=== PATIENT | female | born 1950 | race Caucasian/White ===

== ENCOUNTER 2018-09-13 12:26 | Outpatient (REF) | payer MEDICARE, MEDICAID, SELFPAY ==
[2018-09-13 13:18] LABS: Anion Gap 12.5 mmol/L (3-11); BUN 17 mg/dL (7-18); CO2 24.5 mmol/L (21.0-32.0); CREATININE 0.62 mg/dL (0.55-1.02); Calcium 8.6 mg/dL (8.5-10.1); Chloride 105 mmol/L (98-107); Glucose 126 mg/dL (70-100); Potassium 4.1 mmol/L (3.5-5.1); Sodium 142 mmol/L (136-145)
== END 2018-09-13 12:46 ==
LOC: LBN 12:26
PROVIDERS: PCP Student in an Organized Health Care Education/Training Program; Visit Provider Family Medicine
DX: E11.9 Type 2 diabetes mellitus without complications (principal); E78.5 Hyperlipidemia, unspecified
CPT/HCPCS: 80048; 83036

== ENCOUNTER 2018-09-23 16:39 | Outpatient (REF) | payer MEDICARE, MEDICAID, SELFPAY ==
[2018-09-23 22:16] LABS: Hemoglobin A1C 6.1 % (4.5-6.2)
== END 2018-09-23 16:59 ==
LOC: LBN 16:39
PROVIDERS: PCP Student in an Organized Health Care Education/Training Program; Visit Provider Family Medicine
DX: E11.9 Type 2 diabetes mellitus without complications (principal)
CPT/HCPCS: 83036

== ENCOUNTER 2019-03-18 11:36 | Outpatient (CLI) | payer MEDICARE, MEDICAID, SELFPAY ==
[2019-03-18 12:20] LABS: Anion Gap 14.4 mmol/L (3-11); BUN 14 mg/dL (7-18); CO2 24.6 mmol/L (21.0-32.0); CREATININE 0.81 mg/dL (0.55-1.02); Calcium 8.7 mg/dL (8.5-10.1); Chloride 101 mmol/L (98-107); Glucose 242 mg/dL (70-100); Potassium 3.9 mmol/L (3.5-5.1); Sodium 140 mmol/L (136-145)
[2019-03-18 13:01] LABS: Hemoglobin A1C 6.8 % (4.5-6.2)
== END 2019-03-18 11:56 ==
PROVIDERS: PCP Student in an Organized Health Care Education/Training Program; Visit Provider Nurse Practitioner Adult Health
DX: E11.9 Type 2 diabetes mellitus without complications (principal)
CPT/HCPCS: 36415; 80048; 83036

== ENCOUNTER 2019-08-13 08:54 | Outpatient (REF) | payer MEDICARE, MEDICAID, SELFPAY ==
[2019-08-13 10:47] LABS: Bilirubin Negative (Negative); Blood Trace-intact (Negative); Clarity Cloudy (Clear); Glucose 250 mg/dL (Negative); Ketones Trace mg/dL (Negative); Leukocyte Esterase Small (Negative); Nitrite Positive (Negative); Specific Gravity 1.025 (1.005-1.025)
[2019-08-13 10:57] LABS: Bacteria Packed HPF (Negative); C & S Indicated? Yes; WBC >50 HPF (0-5)
== END 2019-08-13 09:14 ==
LOC: LBN 08:54
PROVIDERS: PCP Student in an Organized Health Care Education/Training Program; Visit Provider Nurse Practitioner Adult Health
DX: R30.0 Dysuria (principal)
CPT/HCPCS: 87077; 81003; 81015; 87086; 87186

== ENCOUNTER 2019-09-16 10:23 | Outpatient (CLI) | payer MEDICARE, MEDICAID, SELFPAY ==
[2019-09-16 11:23] LABS: Anion Gap 12.4 mmol/L (3-11); BUN 19 mg/dL (7-18); CO2 22.6 mmol/L (21.0-32.0); CREATININE 0.59 mg/dL (0.55-1.02); Calcium 8.4 mg/dL (8.5-10.1); Chloride 105 mmol/L (98-107); Glucose 288 mg/dL (74-106); Potassium 3.9 mmol/L (3.5-5.1); Sodium 140 mmol/L (136-145)
[2019-09-16 12:08] LABS: Hemoglobin A1C 10.4 % (4.5-6.2)
== END 2019-09-16 10:43 ==
PROVIDERS: PCP Student in an Organized Health Care Education/Training Program; Visit Provider Nurse Practitioner Adult Health
DX: E11.9 Type 2 diabetes mellitus without complications (principal)
CPT/HCPCS: 36415; 80048; 83036

== ENCOUNTER 2019-10-21 10:22 | Outpatient (CLI) | payer MEDICARE, MEDICAID, SELFPAY ==
[2019-10-21 10:47] LABS: Abs Immature Grans 0.03 k/cumm (0.0-0.09); Absolute Basophil Count 0.04 k/cumm (0.0-0.2); Absolute Lymphocyte Count 2.78 k/cumm (1.2-3.4); Basophils % 0.3; Eosinophils % 0.3; HCT 42.5 % (36.0-46.0); HGB 13.7 g/dL (12.0-15.5); Immature Grans % 0.3 %; Lymphocytes % 23.3; Mean Corp. HGB Concentration 32.2 g/dL (32.0-36.0); Mean Corpuscular Hemoglobin 27.3 pg (27.0-33.0); Mean Corpuscular Volume 84.7 fL (80-95); Mean Platelet Volume 8.8 fL (8.0-11.0); Neutrophils % 68.8; Platelet Count 450 x1000/uL (130-400); RBC 5.02 m/cumm (4.00-5.20); White Blood Cell Count 11.92 k/cumm (4.4-10.8)
[2019-10-21 10:48] LABS: Absolute Eosinophil Count 0.04 k/cumm (0.0-0.7); Absolute Monocyte Count 0.83 k/cumm (0.11-0.7)
[2019-10-21 10:49] LABS: Anion Gap 12.8 mmol/L (3-11); BUN 24 mg/dL (7-18); CO2 24.2 mmol/L (21.0-32.0); CREATININE 0.86 mg/dL (0.55-1.02); Calcium 8.9 mg/dL (8.5-10.1); Chloride 104 mmol/L (98-107); Glucose 231 mg/dL (74-106); Potassium 3.9 mmol/L (3.5-5.1); Sodium 141 mmol/L (136-145)
== END 2019-10-21 10:42 ==
PROVIDERS: PCP Student in an Organized Health Care Education/Training Program; Visit Provider Nurse Practitioner Adult Health
DX: D50.9 Iron deficiency anemia, unspecified (principal); N39.0 Urinary tract infection, site not specified
CPT/HCPCS: 36415; 80048; 85025

== ENCOUNTER 2019-12-16 11:24 | Outpatient (CLI) | payer MEDICARE, MEDICAID, SELFPAY | END 2019-12-16 11:44 | PROVIDERS: PCP Student in an Organized Health Care Education/Training Program; Visit Provider Nurse Practitioner Adult Health | DX: E11.9 Type 2 diabetes mellitus without complications (principal) | CPT/HCPCS: 36415; 83036 ==

== ENCOUNTER 2021-04-03 19:54 | Outpatient (REF) | payer SELFPAY | END 2021-04-03 19:55 | disposition home or self-care (01) | LOC: LBN 19:54 | PROVIDERS: PCP Student in an Organized Health Care Education/Training Program; Visit Provider Family Medicine | DX: L89.154 Pressure ulcer of sacral region, stage 4 (principal); L03.312 Cellulitis of back [any part except buttock and flank] | CPT/HCPCS: 87077; 87070; 87186; 87205 ==

== ENCOUNTER 2021-10-05 13:43 | Outpatient (REF) | payer MEDICARE, MEDICAID, SELFPAY ==
[2021-10-05 14:21] LABS: Anion Gap 8.6 mmol/L (3-11); BUN 39 mg/dL (7-18); CO2 26.4 mmol/L (21.0-32.0); CREATININE 0.4 mg/dL (0.55-1.02); Calcium 8.8 mg/dL (8.5-10.1); Chloride 106 mmol/L (98-107); Glucose 125 mg/dL (74-106); Potassium 4.1 mmol/L (3.5-5.1); Sodium 141 mmol/L (136-145)
[2021-10-05 14:41] LABS: HCT 40.9 % (36.0-46.0); HGB 12.6 g/dL (11.2-15.7); MCH 26.1 pg (27.0-33.0); MCHC 30.8 % (32.0-36.0); MCV 84.7 fL (80-95); MPV 9.6 fL (8.0-11.0); Platelet Count 314 10^3/uL (130-400); RBC 4.83 10^6/uL (3.93-5.22); RDW 14.4 % (11.7-14.6); WBC 8.91 10^3/uL (4.4-10.8)
[2021-10-08 18:15] LABS: Lamotrigine 2.7 mcg/mL (2.5 - 15.0)
== END 2021-10-05 13:44 | disposition home or self-care (01) ==
LOC: LBN 13:43
PROVIDERS: Visit Provider Nurse Practitioner Family
DX: Z51.81 Encounter for therapeutic drug level monitoring (principal)
CPT/HCPCS: 80048; 80175; 85027

== ENCOUNTER 2021-11-14 14:14 | Outpatient (REF) | payer MEDICARE, MEDICAID, SELFPAY ==
[2021-11-14 15:40] LABS: Abs Immature Grans 0.01 10^3/uL (0.0-0.06); Absolute Basophil Count 0.03 10^3/uL (0.0-0.2); Absolute Eosinophil Count 0.07 10^3/uL (0.0-0.7); Absolute Lymphocyte Count 2.74 10^3/uL (1.2-3.4); Absolute Monocyte Count 0.39 10^3/uL (0.1-0.8); Absolute Neutrophil Count 3.64 10^3/uL (1.2-6.7); Basophils % 0.4; HGB 13.1 g/dL (11.2-15.7); Immature Grans % 0.1; Lymphocytes % 39.8; MCV 84.5 fL (80-95); MPV 9.7 fL (8.0-11.0); Monocytes % 5.7; Nucleated RBC 0 %; Platelet Count 259 10^3/uL (130-400); RBC 4.85 10^6/uL (3.93-5.22); RDW 13.5 % (11.7-14.6); RDW-SD 41.7 fL; WBC 6.88 10^3/uL (4.4-10.8)
[2021-11-14 16:25] LABS: ALT 28 U/L (14-59); AST 17 U/L (15-37); Albumin 2.8 g/dL (3.4-5.0); Alkaline Phosphatase 104 U/L (46-116); Anion Gap 8.8 mmol/L (3-11); BUN 20 mg/dL (7-18); Bilirubin, Total 0.3 mg/dL (0.2-1.0); CO2 27.2 mmol/L (21.0-32.0); CREATININE 0.5 mg/dL (0.55-1.02); Calcium 8.8 mg/dL (8.5-10.1); Chloride 107 mmol/L (98-107); Glucose 151 mg/dL (74-106); Sodium 143 mmol/L (136-145); Total Protein 6.7 g/dL (6.4-8.2)
[2021-11-15 12:58] LABS: Lamotrigine 2.9 mcg/mL (2.5 - 15.0)
== END 2021-11-14 14:15 | disposition home or self-care (01) ==
LOC: LBN 14:14
PROVIDERS: Visit Provider Nurse Practitioner Family
DX: E11.9 Type 2 diabetes mellitus without complications (principal); G40.89 Other seizures
CPT/HCPCS: 80053; 80175; 85025

== ENCOUNTER 2021-12-19 01:52 | Outpatient (REF) | payer MEDICARE, MEDICAID, SELFPAY ==
[2021-12-19 04:18] LABS: Abs Immature Grans 0.02 10^3/uL (0.0-0.06); Absolute Basophil Count 0.04 10^3/uL (0.0-0.2); Absolute Eosinophil Count 0.06 10^3/uL (0.0-0.7); Absolute Lymphocyte Count 4.43 10^3/uL (1.2-3.4); Absolute Monocyte Count 0.61 10^3/uL (0.1-0.8); Absolute Neutrophil Count 3.58 10^3/uL (1.2-6.7); Basophils % 0.5; Eosinophils % 0.7; HCT 37.5 % (36.0-46.0); Immature Grans % 0.2; Lymphocytes % 50.7; MCH 27.7 pg (27.0-33.0); MCV 86.6 fL (80-95); MPV 9.5 fL (8.0-11.0); Neutrophils % 40.9; Nucleated RBC 0 %; Platelet Count 260 10^3/uL (130-400); RBC 4.33 10^6/uL (3.93-5.22); RDW 13.5 % (11.7-14.6); RDW-SD 42.5 fL; WBC 8.74 10^3/uL (4.4-10.8)
[2021-12-19 19:28] LABS: ALT 23 U/L (14-59); AST 14 U/L (15-37); Albumin 2.8 g/dL (3.4-5.0); Alkaline Phosphatase 84 U/L (46-116); Anion Gap 9.4 mmol/L (3-11); BUN 32 mg/dL (7-18); Bilirubin, Total 0.3 mg/dL (0.2-1.0); CO2 25.6 mmol/L (21.0-32.0); CREATININE 0.4 mg/dL (0.55-1.02); Calcium 8.3 mg/dL (8.5-10.1); Chloride 108 mmol/L (98-107); Glucose 158 mg/dL (74-106); Potassium 3.9 mmol/L (3.5-5.1); Sodium 143 mmol/L (136-145); Total Protein 6.5 g/dL (6.4-8.2)
[2021-12-20 16:44] LABS: Lamotrigine 3.1 mcg/mL (2.5 - 15.0)
== END 2021-12-19 01:53 | disposition home or self-care (01) ==
LOC: LBN 01:52
PROVIDERS: Visit Provider Family Medicine
DX: E11.9 Type 2 diabetes mellitus without complications (principal); G81.14 Spastic hemiplegia affecting left nondominant side; R13.11 Dysphagia, oral phase
CPT/HCPCS: 80048; 80053; 80175; 85025

== ENCOUNTER → 2022-01-13 09:06 | Outpatient (BNVA) | payer MEDICARE, MEDICAID, SELFPAY | PROVIDERS: Visit Provider Surgery | DX: R69 Illness, unspecified (principal) ==

== ENCOUNTER → 2022-01-24 10:22 | Outpatient (BNVA) | payer MEDICARE, MEDICAID, SELFPAY | PROVIDERS: Visit Provider Surgery | DX: L89.154 Pressure ulcer of sacral region, stage 4 (principal); I69.398 Other sequelae of cerebral infarction; G40.909 Epilepsy, unspecified, not intractable, without status epilepticus; F03.90 Unspecified dementia, unspecified severity, without behavioral disturbance, psychotic disturbance, mood disturbance, and anxiety | CPT/HCPCS: 99203 ==

== ENCOUNTER 2022-02-19 11:35 | Outpatient (REF) | payer MEDICARE, MEDICAID, SELFPAY ==
[2022-02-21 13:27] LABS: COVID-19 RT-PCR UVMMC Result Negative (Negative)
== END 2022-02-19 11:36 | disposition home or self-care (01) ==
LOC: LBN 11:35
PROVIDERS: Visit Provider Family Medicine
DX: Z20.822 Contact with and (suspected) exposure to COVID-19 (principal)
CPT/HCPCS: U0003; U0005

== ENCOUNTER 2022-02-21 09:25 | Outpatient (REF) | payer MEDICARE, MEDICAID, SELFPAY ==
[2022-02-21 12:44] LABS: Source Nasal/Nares
[2022-02-21 17:50] LABS: COVID-19 PCR Negative (Negative)
== END 2022-02-21 09:26 | disposition home or self-care (01) ==
LOC: LBN 09:25
PROVIDERS: Visit Provider Surgery
DX: Z20.822 Contact with and (suspected) exposure to COVID-19 (principal); Z01.818 Encounter for other preprocedural examination
CPT/HCPCS: 87635; U0005

== ENCOUNTER 2022-02-22 06:18 | Day surgery (SDC) | payer MEDICARE, MEDICAID, SELFPAY ==
--- NOTE | 2022-02-21 10:03 | ANES.PREOP_ITS ---
General Info Surgical Procedure: Operation Date: 02/22/22 07:40 Proposed Procedure Side Surgeon p Exam,Debridement of Wound,Placement of Wound Vac Sussy Mohan MD Meds Allergies and Home Medications Allergies Allergy/AdvReac Type Severity Reaction Status Date / Time diphenhydramine Allergy Unknown Unverified 06/27/13 11:23 Home Medication Medication Instructions Recorded wheelchair #1 04/18/13 Lactobacillus acidophilus 1 10 mg PO DAILY 01/05/22 billion cell capsule baclofen 10 mg tablet 10 mg PO BID 01/05/22 bisacodyl 10 mg rectal suppository 10 mg AK DAILY PRN 01/05/22 dextrose 40 % oral gel (Glutose-15) 10 g PO Q15M PRN 01/05/22 diazepam 10 mg rectal kit 5 mg AK Q12H PRN 01/05/22 diclofenac sodium 1 % topical gel 2 g TOPICAL QID 01/05/22 (Voltaren Arthritis Pain) gabapentin 100 mg capsule 100 mg PO QHS 01/05/22 glucagon 1 mg solution for 1 mg SUBCUT Q20M PRN 01/05/22 injection (GlucaGen HypoKit) lamotrigine 100 mg tablet 100 mg PO BID 01/05/22 lamotrigine 25 mg tablet 25 mg PO BID tab 01/05/22 magnesium hydroxide 400 mg/5 mL 5 ml PO DAILY PRN 01/05/22 oral suspension (Milk of Magnesia) morphine 20 mg/5 mL (4 mg/mL) oral 10 mg PO Q4H PRN 01/05/22 solution nutritional supplements pwd PO 01/05/22 omeprazole 20 mg capsule,delayed 20 mg PO BID 01/05/22 release polyethylene glycol 3350 17 17 g PO DAILY 01/05/22 gram/dose oral powder sennosides 8.6 mg capsule (senna) 8.6 mg PO DAILY 01/05/22 sodium phosphates 19 gram-7 118 ml AK ONCE 01/05/22 gram/118 mL enema (Fleet Enema) zinc sulfate 50 mg zinc (220 mg) 50 mg PO DAILY 01/05/22 capsule (Orazinc) PFSH Active Problems Active Problems: Problem Status Onset Code DNI (do not intubate) Z78.9 DNR (do not resuscitate) Z66 Pressure ulcer of sacral region, stage 4 L89.154 Visit for wound care Z51.89 Seizure disorder as sequela of cerebrovascular accident 10/15/94 I69.398, 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 04/22/13 I69.90 Hemiparesis, left 11/29/17 G81.94 Localization-related (focal) (partial) symptomatic epilepsy and epileptic syndromes with complex partial seizures, intractable, without status epilepticus 10/15/94 G40.219 Dementia without behavioral disturbance 11/29/17 F03.90 Medical History Medical History (Updated 01/24/22 @ 11:26 by Sussy Mohan MD) Abnormal findings on diagnostic imaging of breast (04/22/13) Adenomatous colon polyp (10/13/09) tubular adenoma WALKO 10/13/09 Anemia Benign neoplasm of colon (10/13/09) tubular adenoma WALKO 10/13/09 Depressive disorder (05/21/12) Dysphagia Encounter for palliative care GERD (gastroesophageal reflux disease) Hyperlipidemia (05/21/12) goal change LDL 130 --> 100 due to DM dx 05/2012 Spastic hemiplegia Type 2 diabetes mellitus with hyperglycemia (05/21/12) new elevated FBS 2010, neg FH, little exercise A1C rise noted, Oct 2017. Metformin increased, re-evaluate January 2018[] Urge incontinence of urine (09/17/12) Dr Leslie Weakness Surgical History Surgical History History of colonoscopy Vital Signs and Lab Results Lab Results Blood Type / Crossmatch: No Data to Display Complete Blood Count: No Data to Display Complete Metabolic Panel: No Data to Display Liver Function Panel: No Data to Display Coagulation Panel: No Data to Display Cardiac Panel: No Data to Display Arterial Blood Gas: No Data to Display Venous Blood Gas: No Data to Display Pancreas Panel: No Data to Display Thyroid Panel: No Data to Display Infectious Disease: Coronavirus (COVID-19)(PCR) Pending 02/19/22 16:00 02/19/22 Blood Cultures: No Data to Display Toxicology Panel: No Data to Display Anesthesia Assessment and Plan Anesthesia History Personal History: No History of Anesthesia Complications Family History: No Family History of Anesthesia Complications Implantable Cardiac Device Does patient have a Pacemaker or an ICD?: No ASA Classification ASA Score: ASA 3 Emergency Case?: No Anesthesia Plan Resuscitation Status: DNR Modified During Perioperative Period Resuscitation Modifications: CPR Refused, Defibrillation Refused and Pt. Requests for Clinical Judgement to be Used Anesthesia Technique: General Anesthesia Airway Planned: Endotracheal Tube Monitors Used: Standard Monitors Preoperative Comments:: Patient's sister, Junie Us (DPOA) has consented for the patient to be intubated for the procedure, but does not want heroic life- sustaining measures taken.
[2022-02-22] VITALS (7 sets, daily range): BP systolic 116–167; BP diastolic 57–86; PULSE 50–56; RESP 10–16; TEMP 35.9–36.4; O2SAT 96–100; BMI 18.3
--- NOTE | 2022-02-22 06:09 | ANES.PREOP_ITS ---
General Info Date of Service Date Performed: 02/22/22 Height: 5 ft 8 in Weight: 54.794 kg Body Mass Index (BMI): 18.3 Surgical Procedure: Operation Date: 02/22/22 07:40 Proposed Procedure Side Surgeon p Exam,Debridement of Wound,Placement of Wound Vac Sussy Mohan MD Meds Allergies and Home Medications Allergies Allergy/AdvReac Type Severity Reaction Status Date / Time diphenhydramine Allergy Unknown Unverified 02/22/22 06:08 Home Medication Medication Instructions Recorded wheelchair #1 04/18/13 Lactobacillus acidophilus 1 10 mg PO DAILY 01/05/22 billion cell capsule baclofen 10 mg tablet 10 mg PO BID 01/05/22 bisacodyl 10 mg rectal suppository 10 mg WV DAILY PRN 01/05/22 dextrose 40 % oral gel (Glutose-15) 10 g PO Q15M PRN 01/05/22 diazepam 10 mg rectal kit 5 mg WV Q12H PRN 01/05/22 diclofenac sodium 1 % topical gel 1 applic TOPICAL QD-BID 01/05/22 (Voltaren Arthritis Pain) gabapentin 100 mg capsule 200 mg PO TID 01/05/22 glucagon 1 mg solution for 1 mg SUBCUT Q20M PRN 01/05/22 injection (GlucaGen HypoKit) lamotrigine 100 mg tablet 100 mg PO BID 01/05/22 lamotrigine 25 mg tablet 25 mg PO BID tab 01/05/22 magnesium hydroxide 400 mg/5 mL 5 ml PO DAILY PRN 01/05/22 oral suspension (Milk of Magnesia) morphine 20 mg/5 mL (4 mg/mL) oral 10 mg PO Q4H PRN 01/05/22 solution nutritional supplements pwd PO 01/05/22 omeprazole 20 mg capsule,delayed 20 mg PO BID 01/05/22 release polyethylene glycol 3350 17 17 g PO DAILY 01/05/22 gram/dose oral powder sennosides 8.6 mg capsule (senna) 8.6 mg PO DAILY 01/05/22 sodium phosphates 19 gram-7 118 ml WV ONCE 01/05/22 gram/118 mL enema (Fleet Enema) zinc sulfate 50 mg zinc (220 mg) 50 mg PO DAILY 01/05/22 capsule (Orazinc) cholecalciferol (vitamin D3) 50 50 mcg PO DAILY 02/21/22 mcg (2,000 unit) tablet dextrose 40 % oral gel (Glucose 15 g PO Q15M PRN 02/21/22 Gel) dextrose 40 % oral gel (Glutose-15) 37.5 g PO Q15MIN 02/21/22 morphine concentrate 20 mg/mL oral 20 mg PO DAILY PRN PRN 02/21/22 syringe (FOR ORAL USE ONLY) acetaminophen 500 mg tablet 1,000 mg PO TID 02/22/22 (Acetaminophen Extra Strength) ascorbic acid (vitamin C) 500 mg 500 mg PO DAILY 02/22/22 tablet Current Visit Medications: Current Medications Generic Name Dose Route Start Last Admin Trade Name Freq PRN Reason Stop Dose Admin Ringer's Solution 1,000 mls @ 80 mls/hr 02/22/22 06:00 IV 03/23/22 23:59 INFUSION SHERI Cefazolin Sodium/Dextrose 2 gm in 50 mls @ 100 mls/hr 02/22/22 06:00 Ancef Duplex IVPB 03/23/22 23:59 PREOP SHERI IV Miscellaneous Supplies 1 each 02/22/22 06:00 Iv Access IV 03/23/22 23:59 DIRECTED SHERI Sodium Chloride 0 ml 02/22/22 06:00 Normal Saline Flush 10 Ml Syr IV 03/23/22 23:59 PRN PRN Sodium Chloride 0 ml 02/22/22 06:00 Normal Saline 10 Ml Vial IJ 03/23/22 23:59 DIRECTED PRN Sterile Water 0 ml 02/22/22 06:00 Water,Injection,Sterile 10 Ml Vial IJ 03/23/22 23:59 DIRECTED PRN PFSH Active Problems Active Problems: Problem Status Onset Code Dementia without behavioral disturbance 11/29/17 F03.90 Localization-related (focal) (partial) symptomatic epilepsy and epileptic synd romes with complex partial seizures, intractable, without status epilepticus 10/15/94 G40.219 Hemiparesis, left 11/29/17 G81.94 Late effects of cerebrovascular disease 04/22/13 I69.90 Seizure disorder as sequela of cerebrovascular accident 10/15/94 I69.398, G40.909 Visit for wound care Z51.89 Pressure ulcer of sacral region, stage 4 L89.154 DNR (do not resuscitate) Z66 DNI (do not intubate) Z78.9 Medical History Medical History Abnormal findings on diagnostic imaging of breast (04/22/13) Adenomatous colon polyp (10/13/09) tubular adenoma WALKO 10/13/09 Anemia Benign neoplasm of colon (10/13/09) tubular adenoma WALKO 10/13/09 Depressive disorder (05/21/12) Dysphagia Encounter for palliative care GERD (gastroesophageal reflux disease) Hx of seizure disorder Last seizure was 5/4 per [facility] staff she goes unresponsive and starts drooling. Hyperlipidemia (05/21/12) goal change LDL 130 --> 100 due to DM dx 05/2012 Spastic hemiplegia Type 2 diabetes mellitus with hyperglycemia (05/21/12) new elevated FBS 2010, neg FH, little exercise A1C rise noted, Oct 2017. Metformin increased, re-evaluate January 2018[] Urge incontinence of urine (09/17/12) Dr Leslie Weakness Medical History Comments:: Pt. is wheelchair bound and transfers by [facility] Surgical History Surgical History History of colonoscopy Tobacco Smoking/Tobacco Use Status: Never Alcohol Alcohol Intake: current Substance Use Substance use: Never Substance use type: does not use Vital Signs and Lab Results Lab Results Blood Type / Crossmatch: No Data to Display Complete Blood Count: No Data to Display Complete Metabolic Panel: No Data to Display Liver Function Panel: No Data to Display Coagulation Panel: No Data to Display Cardiac Panel: No Data to Display Arterial Blood Gas: No Data to Display Venous Blood Gas: No Data to Display Pancreas Panel: No Data to Display Thyroid Panel: No Data to Display Infectious Disease: Coronavirus (COVID-19)(PCR) Negative (Negative) 02/21/22 10:20 02/21/22 Coronavirus 2019 Source Nasal/Nares 02/21/22 10:20 02/21/22 Blood Cultures: No Data to Display Toxicology Panel: No Data to Display Anesthesia Assessment and Plan Anesthesia History Personal History: No History of Anesthesia Complications Family History: No Family History of Anesthesia Complications Exercise Tolerance Exercise Tolerance: Metabolic Equivalents<4 Cardiac & Pulmonary Exam Cardiac Exam: Normal S1/S2 Heart Sounds Pulmonary Exam: Clear Bilateral Breath Sounds Implantable Cardiac Device Does patient have a Pacemaker or an ICD?: No Airway Exam Known Difficult Airway: No Mallampati Class: 3 Mouth Opening: Narrow (< 3cm) Thyromental Distance: Greater than 3 cm Neck Range of Motion: Limited ROM Neck Circumference: Normal Teeth Condition: Generalized Poor Dentition and Other (most missing) ASA Classification ASA Score: ASA 3 Emergency Case?: No NPO Status NPO Status: Unable to Assess Anesthesia Plan Resuscitation Status: Full Code Anesthesia Technique: General Anesthesia Airway Planned: Endotracheal Tube Monitors Used: Standard Monitors Preoperative Comments:: 71 yo female with stage 4 sacral ulcer. [facility] Sig PMHx: AVM rupture at 8 year old, left side paralysis, seizures, dementia, dysphagia (takes pills with applesauce), GERD, DM2. Long conversation had with family by my colleague in regards to plan. They would like GA as the plan. DNR/DNI will be rescinded, but if resuscitation is needed due to a likely non-anesthesia/surgery related cause then efforts will not be aggressive.
--- NOTE | 2022-02-22 06:36 | W.PM.OP ---
Date of service: 02/22/22 Time of Service: 07:30 Operative Note Operative Note DATE OF PROCEDURE: 02/22/22 PRE-OP DIAGNOSIS: decubitous ulcer POST-OP DIAGNOSIS: same PROCEDURE: Debridement and wound vac placement SURGEON: Sussy Mohan RES COUNSELOR: Nikky Sifuentes Refer to Anesthesia Record ESTIMATED BLOOD LOSS: 15 PATHOLOGY: none sent COMPLICATIONS: None Patient's condition: stable Implants: 2 pieces of black foam Indications: Yamileht is a pleasant 71-year-old female who has a stage IV sacral ulcer.? The wound has been getting packed daily and cleaned.? There are no signs of infection at this point.? Unfortunately the skin has been trying to close over the wound so it is difficult to assess how wide the wound is.? My recommendation would be to take the patient to the operating room to open the skin a little bit wider clean out the cavity and then place another wound VAC.? This was discussed with Yamileth sister Junie Us who is her guardian.? Verbal consent was obtained from her sister.? My hope is to be able to do this under saddle block so we do not have to sedate her. Risks, benefits, complications were reviewed with the patient's sister.? Complications include but are not limited to bleeding, infection, injury to muscle, continued nonhealing of the wound and adverse reaction to the medications given.? The patient is a DNR/DNI and we will resend that for surgery.? My hope is that this will be an outpatient surgery.? Questions were entertained and answered to Junie's satisfaction and she wished to have us proceed.? No guarantees were given or implied. We will coordinate with [facility] to get the patient over to the hospital the day of surgery. Proceed with debridement of stage IV sacral wound with wound VAC placement in the OR Findings: epithelialized tunnel Procedure Description: After informed consent was obtained from the patient's DPOA she was taken to the operating room on a stretcher. She was placed under general anesthesia and intubated. The patient was then placed in a prone position on the operating room table. Monitors were applied and a timeout was done. The patient's name, date of , allergies to medications, procedure to be done, antibiotic prophylaxis were reviewed. Fire risk was assessed. Next the bilateral buttocks and lower back were prepped with iodine and draped in a sterile surgical fashion. Orders percent bupivacaine was then injected around the wound and into the subcutaneous tissue. Using cautery the tunnel from the skin down to the wider wound base was cored out using a knife. The dissection was taken down with cautery down to the coccyx. There was epithelialization noted over the coccyx as well as into a small pocket at the 6 o'clock position. The epithelial tissue was removed using sharp debridement with a curette. There was not a lot of healthy tissue noted. Once sharp debridement was done a small black sponge was cut to the appropriate size with an arm that would go into the tunnel. The wound was measured at 3 cm deep, 2 cm wide, 2 cm long. The tunnel was 2 cm deep at the 6 o'clock position. The first piece of black foam was placed into the wound making sure that there was sponge going into the tunneling area. A second piece of sponge was placed over this so that it would be flush with the skin. The foam was secured in place. Tegaderm was applied to the patient's skin from the coccyx to the left hip. A sponge was cut into a long strip and this was placed over the Tegaderm and secured with another Tegaderm. The suction tubing was secured at the hip and the wound VAC was turned on. There was good seal and a suction was created. The patient was then rolled over onto her back onto the stretcher. She was woken up extubated and taken back to recovery in stable condition. Instrument, needles and sponges were correct at the end of the case. There were no immediate complications.
--- NOTE | 2022-02-22 06:37 | W.PM.DSUDISC ---
Discharge Plan Disposition Patient Disposition: HOME Condition: Good Discharge Details Reason For Visit: Decubitous ulcer Attending Provider: Sussy Mohan Primary Care Provider: Unknown,Unknown Home Meds and New Rx's Prescriptions: Continued (DME) wheelchair 1 EACH device 1 ea Miscellaneous DAILY Qty: 1 0RF Rx Instructions: needs properly fitting wheelchair Ankle foot orthosis Qty: 1 0RF Rx Instructions: Please provide a Orthotic consult for a new Left AFO Lactobacillus acidophilus 1 billion cell capsule 10 mg PO DAILY 0RF baclofen 10 mg tablet 10 mg PO BID 0RF bisacodyl 10 mg suppository 10 mg VA DAILY PRN0RF diazepam 10 mg kit 5 mg VA Q12H PRN0RF Fleet Enema 19-7 gram/118 mL enema 118 ml VA ONCE 0RF gabapentin 100 mg capsule 200 mg PO TID 0RF GlucaGen HypoKit 1 mg recon soln 1 mg subcut Q20M PRN0RF Rx Instructions: until target blood sugar attained dextrose [Glutose-15] 40 % gel 10 g PO Q15M PRN0RF Rx Instructions: until symptoms of low blood sugar are controlled nutritional supplements Powder PO 0RF lamotrigine 100 mg tablet 100 mg PO BID 0RF lamotrigine 25 mg tablet 25 mg PO BID 0RF magnesium hydroxide [Milk of Magnesia] 400 mg/5 mL suspension 5 ml PO DAILY PRN0RF morphine 20 mg/5 mL (4 mg/mL) solution 10 mg PO Q4H PRN0RF omeprazole 20 mg capsule,delayed release(DR/EC) 20 mg PO BID 0RF polyethylene glycol 3350 17 gram/dose powder 17 g PO DAILY 0RF senna 8.6 mg capsule 8.6 mg PO DAILY 0RF diclofenac sodium [Voltaren Arthritis Pain] 1 % gel 1 applic topical QD-BID 0RF Rx Instructions: apply to left thumb and wrap with gauze to prevent resident getting it in her eyes zinc sulfate [Orazinc] 50 mg zinc (220 mg) capsule 50 mg PO DAILY 0RF morphine concentrate 20 mg/mL Syringe 20 mg PO DAILY PRN PRN0RF dextrose [Glucose Gel] 40 % Gel 15 g PO Q15M PRN0RF Rx Instructions: until symptoms of low blood sugar are controlled dextrose [Glutose-15] 40 % Gel 37.5 g PO Q15MIN 0RF Rx Instructions: give orally q15 min until bs less than 70 cholecalciferol (vitamin D3) 50 mcg (2,000 unit) Tablet 50 mcg PO DAILY 0RF ascorbic acid (vitamin C) 500 mg Tablet 500 mg PO DAILY 0RF acetaminophen [Acetaminophen Extra Strength] 500 mg Tablet 1,000 mg PO TID 0RF Discharge Instructions Additional Instructions: Activity at Home after surgery: 1. keep off her back. Rotate patient side to side every 2 hours Diet, Nutrition, & wound healin. Avoid alcohol until after you are recovered from your surgery 2. Make sure to eat plenty of lean protein (meat, fish, eggs, cottage cheese, beans) 3. Eat a variety of fruits and vegetables. Eat plenty of high fiber foods to avoid constipation. 4. Drink plenty of liquids to stay hydrated and avoid constipation Pain Medications: 1. Tylenol 650mg every 6 hours as needed and Ibuprofen 600 mg every 6 hours as needed. You may alternate between the 2 medications every 3 hours For Constipation: 1. Take Milk of Magnesia or MiraLax as needed for constipation Other: 1. You may shower daily. Do not scrub the incisions 2. Do not soak the incisions for 1 week 3. You may alternate ice and heat as needed for pain and swelling Wound Care: 1. Change wound vac M/W/F- There are 2 pieces of sponge in the wound. Make sure to have a piece of sponge into the tunneled area at the 6 o'clock position. Please call our office if you develop: 1. Fevers >101.5 2. Nausea or Vomiting 3. Worsening pain 4. Redness and thick discharge from the wounds If after hours please call the Hospital at and ask to speak to the on-call surgeon Referrals: Sussy Mohan MD [ [facility] STAFF PHYSICIAN] - (we will set up appointment to go over to rehab) Activity:: Activity as Tolerated Diet:: As Tolerated Discharge Orders Discharge Orders: Discharge Order (Routine); Ordered 02/22/22 Ordered By: Sussy Mohan
[2022-02-22] MEDS: Lactated Ringers 1,000 ML 80 ML IV (07:12)
[2022-02-22] MEDS: ceFAZolin 2 GM/50 ML BAG IVPB (07:47)
--- NOTE | 2022-02-22 08:48 | W.ANESPOSTOP ---
Postoperative Evaluation Date, Time and Location Date Performed: 02/22/22 Time Performed: 08:48 Patient Location: PACU Vital Signs Most Recent Imported Vital Signs: Most Recent Vital Signs Temp Pulse Resp BP Pulse Ox 36.4 C L 56 L 16 116/82 96 02/22/22 06:17 02/22/22 06:17 02/22/22 06:17 02/22/22 06:17 02/22/22 06:17 Assessment Mental Status: Arousable with meaningful communication Airway and Respiratory Function: Patent airway with normal (patient baseline) respiratory exam Cardiovascular Function: Hemodynamically Stable Hydration Status: Adequately Hydrated Nausea & Vomiting: No Nausea or Vomiting Pain: Pain is tolerable per patient Peripheral Nerve Block: Patient did not receive a nerve block
== END 2022-02-22 09:50 | disposition home or self-care (01) ==
PROVIDERS: Visit Provider Surgery
PROC: (CPT 11043; principal; 2022-02-22 07:30)
DX: L89.154 Pressure ulcer of sacral region, stage 4 (principal); G81.94 Hemiplegia, unspecified affecting left nondominant side; Z99.3 Dependence on wheelchair; I69.398 Other sequelae of cerebral infarction; G40.909 Epilepsy, unspecified, not intractable, without status epilepticus; Z66 Do not resuscitate; F03.90 Unspecified dementia, unspecified severity, without behavioral disturbance, psychotic disturbance, mood disturbance, and anxiety
CPT/HCPCS: 11043; J0690

== ENCOUNTER → 2022-03-03 10:02 | Outpatient (BNVA) | payer MEDICARE, MEDICAID, SELFPAY | PROVIDERS: Visit Provider Surgery | DX: L89.154 Pressure ulcer of sacral region, stage 4 (principal) ==

== ENCOUNTER → 2022-03-17 11:34 | Outpatient (BNVA) | payer MEDICARE, MEDICAID, SELFPAY | PROVIDERS: Visit Provider Surgery | DX: L89.154 Pressure ulcer of sacral region, stage 4 | CPT/HCPCS: 99308 ==

== ENCOUNTER → 2022-03-31 11:57 | Outpatient (BNVA) | payer MEDICARE, MEDICAID, SELFPAY | PROVIDERS: Visit Provider Surgery | DX: Z51.89 Encounter for other specified aftercare (principal); L89.154 Pressure ulcer of sacral region, stage 4 | CPT/HCPCS: 99308 ==

== ENCOUNTER → 2022-04-14 11:37 | Outpatient (BNVA) | payer MEDICARE, MEDICAID, SELFPAY | PROVIDERS: Visit Provider Physical Therapy Assistant | DX: L89.154 Pressure ulcer of sacral region, stage 4 (principal) | CPT/HCPCS: 99308 ==

== ENCOUNTER → 2022-05-26 11:28 | Outpatient (BNVA) | payer MEDICARE, MEDICAID, SELFPAY | PROVIDERS: Visit Provider Surgery | DX: L89.154 Pressure ulcer of sacral region, stage 4 (principal); Z51.89 Encounter for other specified aftercare | CPT/HCPCS: 99308 ==

== ENCOUNTER 2022-06-20 11:58 | Emergency (ER) | payer MEDICARE, MEDICAID, SELFPAY ==
[2022-06-20] VITALS (18 sets, daily range): BP systolic 134–146; BP diastolic 56–73; PULSE 55–72; RESP 0–18; O2SAT 93–98
--- NOTE | 2022-06-20 12:00 | DI.CT_ITS ---
Exam(s) CT HEAD WO EXAM: CT HEAD WO CLINICAL HISTORY: Fall, Closed Head injury. TECHNIQUE: Imaging Protocol: Axial computed tomography images with coronal and sagittal reformatted images were created and reviewed COMPARISON: No exams were available for comparison FINDINGS: Ventricles and Extra axial spaces: Normal in size and morphology for the patient's age. The large are a of encephalomalacia involving the right frontal lobe. Hemorrhage: None. Cerebral parenchyma: No acute territorial infarct. Significant parenchymal calcification is present. Midline shift: None. Brainstem/Cerebellum: Normal. Calvarium: The patient has had a prior right frontal craniotomy. Metallic clips are seen within the brain. Visualized Paranasal sinuses/Mastoids: Clear. Soft Tissues: Unremarkable. IMPRESSION: 1. No acute intracranial process. 2. Results of this exam have been verbally communicated with provider. RADIATION DOSE DELIVERED: 806.03mGy.cm Total DLP DATA REPOSITORY: All CT scans at this facility are submitted to the National Radiology Data Registry (NRDR) Dose Index Registry (DIR) with the [employer] ([employer]). RADIATION OPTIMIZATION: All CT scans at this facility use at least one of these dose optimization te chniques: automated exposure control; mA and/or kV adjustment per patient size (includes targeted exa ms where dose is matched to clinical indication); or iterative reconstruction.
--- NOTE | 2022-06-20 12:15 | ED.GENADUL_ITS ---
Discharge Plan Disposition Patient Disposition: SNF (LEVEL 1) [facility] Condition: Stable Discharge Details Clinical Impression: CHI (closed head injury), Acute UTI Primary Care Provider: Unknown,Unknown ED Provider: Brooklynn Levin Home Meds and New Rx's Prescriptions: New cephalexin 500 mg tablet 500 mg PO BID 7 Days Qty: 14 0RF Continued (DME) wheelchair 1 EACH device 1 ea Miscellaneous DAILY Qty: 1 Rx Instructions: needs properly fitting wheelchair Ankle foot orthosis Qty: 1 0RF Rx Instructions: Please provide a Orthotic consult for a new Left AFO Lactobacillus acidophilus 1 billion cell capsule 10 mg PO DAILY baclofen 10 mg tablet 10 mg PO BID bisacodyl 10 mg suppository 10 mg TX DAILY PRN Fleet Enema 19-7 gram/118 mL enema 118 ml TX ONCE gabapentin 100 mg capsule 200 mg PO TID GlucaGen HypoKit 1 mg recon soln 1 mg subcut Q20M PRN Rx Instructions: until target blood sugar attained dextrose [Glutose-15] 40 % gel 10 g PO Q15M PRN Rx Instructions: until symptoms of low blood sugar are controlled nutritional supplements Powder PO lamotrigine 100 mg tablet 100 mg PO BID lamotrigine 25 mg tablet 25 mg PO BID magnesium hydroxide [Milk of Magnesia] 400 mg/5 mL suspension 5 ml PO DAILY PRN morphine 20 mg/5 mL (4 mg/mL) solution 10 mg PO Q4H PRN omeprazole 20 mg capsule,delayed release(DR/EC) 20 mg PO DAILY polyethylene glycol 3350 17 gram/dose powder 17 g PO DAILY senna 8.6 mg capsule 8.6 mg PO DAILY diclofenac sodium [Voltaren Arthritis Pain] 1 % gel 1 applic topical QD-BID Rx Instructions: apply to left thumb and wrap with gauze to prevent resident getting it in her eyes zinc sulfate [Orazinc] 50 mg zinc (220 mg) capsule 50 mg PO DAILY morphine concentrate 20 mg/mL Syringe 5 mg PO DAILY PRN PRN dextrose [Glucose Gel] 40 % Gel 15 g PO Q15M PRN Rx Instructions: until symptoms of low blood sugar are controlled dextrose [Glutose-15] 40 % Gel 37.5 g PO Q15MIN Rx Instructions: give orally q15 min until bs less than 70 cholecalciferol (vitamin D3) 50 mcg (2,000 unit) Tablet 50 mcg PO DAILY ascorbic acid (vitamin C) 500 mg Tablet 500 mg PO DAILY acetaminophen [Acetaminophen Extra Strength] 500 mg Tablet 1,000 mg PO TID Discharge Instructions Instructions: Urinary Tract Infection in Women (ED), Head Injury (ED) Additional Instructions: CT shows nothing acute, urine shows urinary tract infection. Please take the antibiotics twice daily for the next 7 days as directed. You are given the first dose here. Follow up with primary care provider in 3-5 days. Return to ED sooner if any worsening or concerns. Increase oral fluids. Medical Decision Making CT head ordered, UA CT shows nothing acute. Urinalysis positive for UTI which show trace blood, positive nitrites large leukocytes greater than 50 WBCs culture is pending at this time. Will place patient on cephalexin 500 mg twice a day x7 days. HPI General Mode of arrival: EMS . Date/Time Provider Initiated Documentation: 06/20/22 12:05 . Limitations to Documentation: no limitations . Information obtained by: patient, RN/MD, EMS, RN notes reviewed and old records reviewed . HPI Narrative: 71-year-old female with a history of left hemiparesis, dementia, seizure disorder presents to the ER with chief complaint of fall out of bed approximately 2 to 3 feet from [facility] rehab. She did strike her head on a metal trash can and has a small hematoma noted to the top of her scalp. She denies any loss of consciousness denies any neck pain. Health and rehab staff are concerned that she may have attempted to get out of bed herself which patient denies. They are questioning a UTI and altered mental status. Patient denies any dysuria and states that she did not attempt to get out of bed. Related Data Home Medications Medication Instructions Recorded Confirmed wheelchair ##1 04/18/13 04/14/22 Lactobacillus acidophilus 1 10 mg PO DAILY 01/05/22 06/20/22 billion cell capsule baclofen 10 mg tablet 10 mg PO BID 01/05/22 06/20/22 bisacodyl 10 mg rectal suppository 10 mg TX DAILY PRN 01/05/22 06/20/22 dextrose 40 % oral gel (Glutose-15) 10 g PO Q15M PRN 01/05/22 06/20/22 diclofenac sodium 1 % topical gel 1 applic topical QD-BID 01/05/22 06/20/22 (Voltaren Arthritis Pain) gabapentin 100 mg capsule 200 mg PO TID 01/05/22 06/20/22 glucagon 1 mg solution for 1 mg subcut Q20M PRN 01/05/22 06/20/22 injection (GlucaGen HypoKit) lamotrigine 100 mg tablet 100 mg PO BID 01/05/22 06/20/22 lamotrigine 25 mg tablet 25 mg PO BID 01/05/22 06/20/22 magnesium hydroxide 400 mg/5 mL 5 ml PO DAILY PRN 01/05/22 06/20/22 oral suspension (Milk of Magnesia) morphine 20 mg/5 mL (4 mg/mL) oral 10 mg PO Q4H PRN 01/05/22 06/20/22 solution nutritional supplements pwd PO 01/05/22 04/14/22 omeprazole 20 mg capsule,delayed 20 mg PO DAILY 01/05/22 06/20/22 release polyethylene glycol 3350 17 17 g PO DAILY 01/05/22 06/20/22 gram/dose oral powder sennosides 8.6 mg capsule (senna) 8.6 mg PO DAILY 01/05/22 06/20/22 sodium phosphates 19 gram-7 118 ml TX ONCE 01/05/22 06/20/22 gram/118 mL enema (Fleet Enema) zinc sulfate 50 mg zinc (220 mg) 50 mg PO DAILY 01/05/22 06/20/22 capsule (Orazinc) cholecalciferol (vitamin D3) 50 50 mcg PO DAILY 02/21/22 06/20/22 mcg (2,000 unit) tablet dextrose 40 % oral gel (Glucose 15 g PO Q15M PRN 02/21/22 06/20/22 Gel) dextrose 40 % oral gel (Glutose-15) 37.5 g PO Q15MIN 02/21/22 06/20/22 morphine concentrate 20 mg/mL oral 5 mg PO DAILY PRN PRN 02/21/22 06/20/22 syringe (FOR ORAL USE ONLY) acetaminophen 500 mg tablet 1,000 mg PO TID 02/22/22 06/20/22 (Acetaminophen Extra Strength) ascorbic acid (vitamin C) 500 mg 500 mg PO DAILY 02/22/22 06/20/22 tablet cephalexin 500 mg tablet 500 mg PO BID 7 days #14 tabs 06/20/22 Previous Rx's Medication Instructions Recorded cephalexin 500 mg tablet 500 mg PO BID 7 days #14 tabs 06/20/22 Allergies Allergy/AdvReac Type Severity Reaction Status Date / Time diphenhydramine Allergy Unknown Unverified 02/22/22 06:08 General Stated Complaint: HeadInjury DIANA: 3 Review of Systems All systems reviewed & are unremarkable except as noted in HPI and below Neurologic Neurologic: Reports as per HPI PFSH All Active Problems (Updated 06/20/22 @ 13:37 by Brooklynn Levin NP) CHI (closed head injury) (Acute) Acute UTI (Acute) Dementia without behavioral disturbance (Acute 11/29/17) per review of chart notes, disabling. Localization-related (focal) (partial) symptomatic epilepsy and epileptic syndromes with complex partial seizures, intractable, without status epilepticus (Acute 10/15/94) Thadani, lamotrigine rx, due to aneurysm as young person Hemiparesis, left (Acute 11/29/17) per chart review. Brace per ortho eval/Tx/Rx. 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, L HEMIPARESIS/DYSTONIA; h/o botulinium inj, consult dr mary hollis for tremor without benefit; care home 09/2007 after failing [facility] Seizure disorder as sequela of cerebrovascular accident (Acute 10/15/94) Thadani, lamotrigine rx, due to aneurysm as young person Visit for wound care (Acute) Pressure ulcer of sacral region, stage 4 (Acute) DNR (do not resuscitate) (Acute) DNI (do not intubate) (Acute) Medical History Abnormal findings on diagnostic imaging of breast (04/22/13) Adenomatous colon polyp (10/13/09) tubular adenoma WALKO 10/13/09 Anemia Benign neoplasm of colon (10/13/09) tubular adenoma WALKO 10/13/09 Depressive disorder (05/21/12) Dysphagia Encounter for palliative care GERD (gastroesophageal reflux disease) Hx of seizure disorder Last seizure was 5/4 per [facility] staff she goes unresponsive and starts drooling. Hyperlipidemia (05/21/12) goal change LDL 130 --> 100 due to DM dx 05/2012 Spastic hemiplegia Type 2 diabetes mellitus with hyperglycemia (05/21/12) new elevated FBS 2010, neg FH, little exercise A1C rise noted, Oct 2017. Metformin increased, re-evaluate January 2018[] Urge incontinence of urine (09/17/12) Dr Anuj Calloway Surgical History History of colonoscopy Social History Smoking/Tobacco Use Status: Never Smoking risk assessment performed?: Yes Alcohol Intake: current Drug use: Never Substance use type: does not use Do you feel safe at home: Yes Do you feel safe in your relationship?: Yes Additional Social history: unable to assess privatley Exam Const General: comfortable, well developed, well groomed and frail appearing Nutritional Appearance: thin Orientation: alert, awake and oriented x3 Limitations: physical limitations HENMT Head: hematoma vertex Head images: 1. Small hematoma Course Vital Signs Vital signs: Vital Signs Pulse 62 06/20/22 12:01 Respiratory Rate 11 L 06/20/22 12:01 Blood Pressure 137/73 06/20/22 12:01 Pulse Oximetry 95 06/20/22 12:01 Pulse 62 06/20/22 12:01 Respiratory Rate 11 L 06/20/22 12:01 Respiratory Effort Non-Labored 06/20/22 12:04 Respiratory Depth Normal 06/20/22 12:04 Respiratory Pattern Normal 06/20/22 12:04 Blood Pressure 137/73 06/20/22 12:01 Blood Pressure Position Sitting 06/20/22 12:01 Pulse Oximetry 95 06/20/22 12:01 Oxygen Delivery Method Room Air 06/20/22 12:01 Oxygen Flow Rate 0 06/20/22 12:01 Pain Level 8 06/20/22 12:01
[2022-06-20] MEDS: Acetaminophen 325 MG TAB 650 MG PO (12:26)
[2022-06-20 13:00] LABS: Bilirubin Negative (Negative); Blood Trace-intact (Negative); Clarity Cloudy (Clear); Glucose Negative (Negative); Ketones Negative (Negative); Leukocyte Esterase Large (Negative); Nitrite Positive (Negative); Specific Gravity 1.015 (1.005-1.025); pH 6.5 (5-8)
[2022-06-20 13:08] LABS: WBC >50 HPF (0-5)
[2022-06-20 13:09] LABS: Bacteria Moderate HPF (Negative); C & S Indicated? Yes; Casts Negative LPF (Negative); Crystals Negative HPF (Negative); Epithelial Cells Rare HPF (Negative); Mucus Moderate (Negative); Other Cells Negative (Negative)
[2022-06-20] MEDS: Cephalexin 500 MG CAP PO (13:56)
[2022-06-20] MEDS: Cephalexin 500 MG CAP, 2 CAPS/BTL PO (13:57)
== END 2022-06-20 14:17 | disposition skilled nursing facility (03) ==
LOC: ER 14:00
PROVIDERS: Emergency Provider Registered Nurse Emergency
DX: N39.0 Urinary tract infection, site not specified (principal); S00.93XA Contusion of unspecified part of head, initial encounter; E11.65 Type 2 diabetes mellitus with hyperglycemia; Z79.4 Long term (current) use of insulin; W06.XXXA Fall from bed, initial encounter; W22.8XXA Striking against or struck by other objects, initial encounter
CPT/HCPCS: 87077; 99284; 70450; 81003; 81015; 87086; 87186

== ENCOUNTER 2023-01-05 07:41 | Outpatient (REF) | payer MEDICARE, MEDICAID, SELFPAY ==
[2023-01-05 10:18] LABS: Abs Immature Grans 0.02 10^3/uL (0.0-0.06); Absolute Basophil Count 0.05 10^3/uL (0.0-0.2); Absolute Eosinophil Count 0.19 10^3/uL (0.0-0.7); Absolute Lymphocyte Count 3.86 10^3/uL (1.2-3.4); Absolute Monocyte Count 0.52 10^3/uL (0.1-0.8); Absolute Neutrophil Count 2.72 10^3/uL (1.2-6.7); Basophils % 0.7; Eosinophils % 2.6; HCT 39.5 % (36.0-46.0); HGB 12.5 g/dL (11.2-15.7); Immature Grans % 0.3; Lymphocytes % 52.4; MCH 25.6 pg (27.0-33.0); MCHC 31.6 % (32.0-36.0); MCV 81 fL (80-95); MPV 9.5 fL (8.0-11.0); Monocytes % 7.1; Neutrophils % 36.9; Platelet Count 302 10^3/uL (130-400); RBC 4.88 10^6/uL (3.93-5.22); RDW 14.2 % (11.7-14.6); RDW-SD 41.6 fL; WBC 7.36 10^3/uL (4.4-10.8)
[2023-01-05 10:28] LABS: ALT 14 U/L (14-59); AST 12 U/L (15-37); Albumin 2.9 g/dL (3.4-5.0); Alkaline Phosphatase 112 U/L (46-116); BUN 20 mg/dL (7-18); Bilirubin, Total 0.3 mg/dL (0.2-1.0); CREATININE 0.7 mg/dL (0.55-1.02); Calcium 8.6 mg/dL (8.5-10.1); Chloride 107 mmol/L (98-107); Estimated GFR 91.83 (mL/min/1.73m2); Glucose 135 mg/dL (74-106); Potassium 4.2 mmol/L (3.5-5.1); Sodium 143 mmol/L (136-145); Total Protein 6.9 g/dL (6.4-8.2)
[2023-01-05 19:50] LABS: Bilirubin Negative (Negative); Blood Trace-intact (Negative); Clarity Sl Cloudy (Clear); Glucose Negative (Negative); Ketones Negative (Negative); Leukocyte Esterase Small (Negative); Nitrite Positive (Negative); Specific Gravity >= 1.030 (1.005-1.025); Urobilinogen 0.2 mg/dL (Up to 0.2); pH 5.5 (5-8)
[2023-01-05 19:59] LABS: Bacteria Many HPF (Negative); C & S Indicated? C&S Done As Ordered; Casts Negative LPF (Negative); Crystals Negative HPF (Negative); Epithelial Cells Few HPF (Negative); Mucus Moderate (Negative); Other Cells Negative (Negative); WBC >50 HPF (0-5)
== END 2023-01-05 07:42 | disposition home or self-care (01) ==
LOC: LBN 07:41
PROVIDERS: Visit Provider Family Medicine
DX: D64.9 Anemia, unspecified (principal); G40.89 Other seizures; R82.998 Other abnormal findings in urine; R41.9 Unspecified symptoms and signs involving cognitive functions and awareness; R79.89 Other specified abnormal findings of blood chemistry
CPT/HCPCS: 80053; 87077; 81003; 81015; 85025; 87086; 87186

== ENCOUNTER 2023-02-16 16:20 | Outpatient (REF) | payer MEDICARE, MEDICAID, SELFPAY ==
[2023-02-16 16:25] LABS: Bilirubin Negative (Negative); Blood Trace-intact (Negative); Clarity Cloudy (Clear); Glucose 100 mg/dL (Negative); Ketones Negative (Negative); Leukocyte Esterase Large (Negative); Nitrite Negative (Negative); Urobilinogen 0.2 mg/dL (Up to 0.2)
[2023-02-16 16:45] LABS: Bacteria Moderate HPF (Negative); C & S Indicated? Yes; Casts Negative LPF (Negative); Crystals Negative HPF (Negative); Epithelial Cells Few HPF (Negative); Mucus Trace (Negative); RBC 0-2 HPF (0-2); WBC >50 HPF (0-5)
[2023-02-20 13:05] LABS: Lamotrigine 3.3 mcg/mL (3.0-15.0)
== END 2023-02-16 16:21 | disposition home or self-care (01) ==
LOC: LBN 16:20
PROVIDERS: Visit Provider Physician Assistant
DX: G40.89 Other seizures (principal); N39.0 Urinary tract infection, site not specified; Z79.899 Other long term (current) drug therapy; Z51.81 Encounter for therapeutic drug level monitoring
CPT/HCPCS: 80175; 87077; 81003; 81015; 83036; 87086; 87186

== ENCOUNTER 2023-05-24 18:50 | Outpatient (REF) | payer MEDICARE, MEDICAID, SELFPAY ==
[2023-05-24 17:21] LABS: Vitamin D 25 Total 30.5 ng/mL (30-100)
== END 2023-05-24 18:51 | disposition home or self-care (01) ==
LOC: LBN 18:50
PROVIDERS: PCP Family Medicine; Visit Provider Physician Assistant
DX: M62.81 Muscle weakness (generalized) (principal); Z79.899 Other long term (current) drug therapy
CPT/HCPCS: 82306

== ENCOUNTER 2023-05-25 18:25 | Outpatient (REF) | payer MEDICARE, MEDICAID, SELFPAY ==
[2023-05-25 19:17] LABS: Abs Immature Grans 0.06 10^3/uL (0.0-0.06); Absolute Basophil Count 0.05 10^3/uL (0.0-0.2); Absolute Eosinophil Count 0.04 10^3/uL (0.0-0.7); Absolute Lymphocyte Count 1.75 10^3/uL (1.2-3.4); Absolute Monocyte Count 1.34 10^3/uL (0.1-0.8); Basophils % 0.4; Eosinophils % 0.3; HCT 42.7 % (36.0-46.0); HGB 14.2 g/dL (11.2-15.7); Immature Grans % 0.5; Lymphocytes % 14.5; MCH 26.9 pg (27.0-33.0); MCHC 33.3 % (32.0-36.0); MCV 81 fL (80-95); MPV 9.5 fL (8.0-11.0); Monocytes % 11.1; Neutrophils % 73.2; Platelet Count 298 10^3/uL (130-400); RBC 5.27 10^6/uL (3.93-5.22); RDW 14.5 % (11.7-14.6); RDW-SD 42.5 fL; WBC 12.06 10^3/uL (4.4-10.8)
[2023-05-25 19:18] LABS: Absolute Neutrophil Count 8.83 10^3/uL (1.2-6.7)
[2023-05-25 19:19] LABS: ALT 25 U/L (14-59); AST 22 U/L (15-37); Albumin 2.9 g/dL (3.4-5.0); Alkaline Phosphatase 143 U/L (46-116); Anion Gap 11.1 mmol/L (3-11); BUN 15 mg/dL (7-18); Bilirubin, Total 0.5 mg/dL (0.2-1.0); CO2 24.9 mmol/L (21.0-32.0); CREATININE 0.9 mg/dL (0.55-1.02); Calcium 9.2 mg/dL (8.5-10.1); Chloride 102 mmol/L (98-107); Estimated GFR 67.92 (mL/min/1.73m2); Glucose 380 mg/dL (74-106); Sodium 138 mmol/L (136-145); Total Protein 7.8 g/dL (6.4-8.2)
[2023-05-25 19:24] LABS: Bilirubin Small (Negative); Blood Negative (Negative); Clarity Cloudy (Clear); Glucose 250 mg/dL (Negative); Ketones Trace mg/dL (Negative); Leukocyte Esterase Small (Negative); Nitrite Negative (Negative); RBC 0-2 HPF (0-2); Specific Gravity 1.025 (1.005-1.025)
[2023-05-25 19:25] LABS: Bacteria Many HPF (Negative); C & S Indicated? No/Sq. Contamination; Casts Negative LPF (Negative); Crystals Negative HPF (Negative); Epithelial Cells Many HPF (Negative); Mucus Trace (Negative); Other Cells Few Yeast (Negative)
== END 2023-05-25 18:26 | disposition home or self-care (01) ==
LOC: LBN 18:25
PROVIDERS: PCP Family Medicine; Visit Provider Family Medicine
DX: G40.89 Other seizures (principal); Z79.899 Other long term (current) drug therapy; N39.0 Urinary tract infection, site not specified; D64.9 Anemia, unspecified; R79.89 Other specified abnormal findings of blood chemistry; R82.998 Other abnormal findings in urine
CPT/HCPCS: 80053; 81003; 81015; 85025; 87086

== ENCOUNTER → 2023-08-13 08:20 | Outpatient (BNVA) | payer MEDICARE, MEDICAID, SELFPAY | PROVIDERS: PCP Family Medicine; Referring Provider Family Medicine; Visit Provider Psychiatry & Neurology Neurology | DX: I69.398 Other sequelae of cerebral infarction (principal); G40.219 Localization-related (focal) (partial) symptomatic epilepsy and epileptic syndromes with complex partial seizures, intractable, without status epilepticus; Z87.820 Personal history of traumatic brain injury; G91.9 Hydrocephalus, unspecified; I10 Essential (primary) hypertension; E11.9 Type 2 diabetes mellitus without complications | CPT/HCPCS: 99215 ==

== ENCOUNTER 2023-09-19 13:37 | Outpatient (REF) | payer MEDICARE, MEDICAID, SELFPAY ==
[2023-09-19 10:35] LABS: HCT 41.5 % (36.0-46.0); HGB 13.5 g/dL (11.2-15.7); MCH 27.7 pg (27.0-33.0); MCHC 32.5 % (32.0-36.0); MCV 85 fL (80-95); MPV 9.3 fL (8.0-11.0); Platelet Count 268 10^3/uL (130-400); RBC 4.88 10^6/uL (3.93-5.22); RDW 13.6 % (11.7-14.6); RDW-SD 42.3 fL; WBC 7.53 10^3/uL (4.4-10.8)
[2023-09-19 10:53] LABS: Hemoglobin A1C 8.9 % (<5.7)
[2023-09-19 10:56] LABS: ALT 20 U/L (14-59); AST 16 U/L (15-37); Albumin 2.9 g/dL (3.4-5.0); Alkaline Phosphatase 84 U/L (46-116); Anion Gap 9.4 mmol/L (3-11); BUN 22 mg/dL (7-18); Bilirubin, Total 0.3 mg/dL (0.2-1.0); CO2 28.6 mmol/L (21.0-32.0); CREATININE 0.6 mg/dL (0.55-1.02); Calcium 8.9 mg/dL (8.5-10.1); Chloride 106 mmol/L (98-107); Estimated GFR 95.31 (mL/min/1.73m2); Glucose 153 mg/dL (74-106); Potassium 3.8 mmol/L (3.5-5.1); Sodium 144 mmol/L (136-145); Total Protein 6.8 g/dL (6.4-8.2)
== END 2023-09-19 13:38 | disposition home or self-care (01) ==
LOC: LBN 13:37
PROVIDERS: PCP Family Medicine; Visit Provider Family Medicine
DX: E11.9 Type 2 diabetes mellitus without complications (principal); D64.9 Anemia, unspecified; I10 Essential (primary) hypertension; E78.5 Hyperlipidemia, unspecified
CPT/HCPCS: 80053; 85027; 83036; 85025

== ENCOUNTER 2023-10-17 10:38 | Outpatient (REF) | payer MEDICARE, MEDICAID, SELFPAY ==
[2023-10-17 11:51] LABS: COVID-19 PCR Negative (Negative); Influenza A PCR Positive (Negative); Influenza B PCR Negative (Negative); RSV PCR Negative (Negative)
[2023-10-17 11:55] LABS: Source Nasopharynx
== END 2023-10-17 10:39 | disposition home or self-care (01) ==
LOC: LBN 10:38
PROVIDERS: PCP Family Medicine; Visit Provider Family Medicine
DX: R50.9 Fever, unspecified (principal); J10.1 Influenza due to other identified influenza virus with other respiratory manifestations; Z20.822 Contact with and (suspected) exposure to COVID-19
CPT/HCPCS: 87637

== ENCOUNTER 2023-11-23 16:21 | Outpatient (REF) | payer MEDICARE, MEDICAID, SELFPAY ==
[2023-11-23 08:14] LABS: Abs Immature Grans 0.08 10^3/uL (0.0-0.06); Absolute Lymphocyte Count 3.62 10^3/uL (1.2-3.4); Absolute Monocyte Count 1.07 10^3/uL (0.1-0.8); Basophils % 0.7; Eosinophils % 0.1; HCT 42.5 % (36.0-46.0); HGB 14.1 g/dL (11.2-15.7); Immature Grans % 0.5; Lymphocytes % 23.6; MCH 27.8 pg (27.0-33.0); MCHC 33.2 % (32.0-36.0); MCV 84 fL (80-95); MPV 9.2 fL (8.0-11.0); Neutrophils % 68.1; Platelet Count 433 10^3/uL (130-400); RBC 5.08 10^6/uL (3.93-5.22); RDW 14.4 % (11.7-14.6); RDW-SD 43.8 fL; WBC 15.32 10^3/uL (4.4-10.8)
[2023-11-23 08:15] LABS: Absolute Basophil Count 0.11 10^3/uL (0.0-0.2); Absolute Eosinophil Count 0.02 10^3/uL (0.0-0.7); Absolute Neutrophil Count 10.43 10^3/uL (1.2-6.7)
[2023-11-23 08:30] LABS: ALT 27 U/L (14-59); AST 20 U/L (15-37); Albumin 2.9 g/dL (3.4-5.0); Alkaline Phosphatase 88 U/L (46-116); Anion Gap 13.3 mmol/L (3-11); BUN 27 mg/dL (7-18); Bilirubin, Total 0.5 mg/dL (0.2-1.0); CO2 24.7 mmol/L (21.0-32.0); CREATININE 0.7 mg/dL (0.55-1.02); Calcium 9.3 mg/dL (8.5-10.1); Chloride 100 mmol/L (98-107); Estimated GFR 91.26 (mL/min/1.73m2); Glucose 367 mg/dL (74-106); Potassium 4.6 mmol/L (3.5-5.1); Sodium 138 mmol/L (136-145); Total Protein 7.7 g/dL (6.4-8.2)
== END 2023-11-23 16:22 | disposition home or self-care (01) ==
LOC: LBN 16:21
PROVIDERS: PCP Family Medicine; Visit Provider Family Medicine
DX: R11.2 Nausea with vomiting, unspecified (principal)
CPT/HCPCS: 80053; 85025

== ENCOUNTER 2023-11-30 10:50 | Outpatient (REF) | payer MEDICARE, MEDICAID, SELFPAY ==
[2023-11-30 11:34] LABS: Abs Immature Grans 0.19 10^3/uL (0.0-0.06); HCT 37.9 % (36.0-46.0); HGB 12.3 g/dL (11.2-15.7); MCH 27.7 pg (27.0-33.0); MCHC 32.5 % (32.0-36.0); MCV 85 fL (80-95); MPV 9.8 fL (8.0-11.0); Platelet Count 289 10^3/uL (130-400); RBC 4.44 10^6/uL (3.93-5.22); RDW 15.1 % (11.7-14.6); RDW-SD 46.8 fL; WBC 16.82 10^3/uL (4.4-10.8)
[2023-11-30 11:45] LABS: Bilirubin Negative (Negative); Blood Large (Negative); Clarity Cloudy (Clear); Glucose Negative (Negative); Ketones Negative (Negative); Leukocyte Esterase Large (Negative); Nitrite Positive (Negative); Urobilinogen 0.2 mg/dL (Up to 0.2)
[2023-11-30 11:46] LABS: ALT 35 U/L (14-59); AST 29 U/L (15-37); Albumin 2.6 g/dL (3.4-5.0); Alkaline Phosphatase 94 U/L (46-116); Anion Gap 15.9 mmol/L (3-11); BUN 42 mg/dL (7-18); Bilirubin, Total 0.6 mg/dL (0.2-1.0); CO2 21.1 mmol/L (21.0-32.0); CREATININE 1.2 mg/dL (0.55-1.02); Calcium 8.5 mg/dL (8.5-10.1); Chloride 102 mmol/L (98-107); Glucose 393 mg/dL (74-106); Potassium 4.2 mmol/L (3.5-5.1); Sodium 139 mmol/L (136-145)
[2023-11-30 11:55] LABS: Absolute Lymphocyte Count 1.18 10^3/uL (1.2-3.4); Absolute Monocyte Count 0.84 10^3/uL (0.1-0.8); Bands % 6
[2023-11-30 11:56] LABS: Diff Comment Manual Differential; RBC Morphology Normal
[2023-11-30 12:01] LABS: WBC >50 HPF (0-5)
[2023-11-30 12:02] LABS: C & S Indicated? C&S Done As Ordered
== END 2023-11-30 10:51 | disposition home or self-care (01) ==
LOC: LBN 10:50
PROVIDERS: PCP Family Medicine; Referring Provider Nurse Practitioner Adult Health; Visit Provider Nurse Practitioner Adult Health
DX: R53.1 Weakness (principal); R79.89 Other specified abnormal findings of blood chemistry; R82.998 Other abnormal findings in urine
CPT/HCPCS: 80053; 87077; 81003; 81015; 85025; 87086; 87186

== ENCOUNTER 2023-12-02 09:34 | Outpatient (REF) | payer MEDICARE, MEDICAID, SELFPAY ==
[2023-12-02 10:21] LABS: Abs Immature Grans 0.04 10^3/uL (0.0-0.06); HCT 38.1 % (36.0-46.0); HGB 12.2 g/dL (11.2-15.7); MCH 27.8 pg (27.0-33.0); MCV 87 fL (80-95); MPV 10.4 fL (8.0-11.0); Platelet Count 274 10^3/uL (130-400); RBC 4.39 10^6/uL (3.93-5.22); RDW-SD 48.2 fL; WBC 10.11 10^3/uL (4.4-10.8)
[2023-12-02 10:42] LABS: ALT 32 U/L (14-59); AST 32 U/L (15-37); Albumin 2.5 g/dL (3.4-5.0); Alkaline Phosphatase 81 U/L (46-116); Anion Gap 16.5 mmol/L (3-11); BUN 36 mg/dL (7-18); Bilirubin, Total 0.5 mg/dL (0.2-1.0); CO2 22.5 mmol/L (21.0-32.0); CREATININE 0.7 mg/dL (0.55-1.02); Calcium 8.5 mg/dL (8.5-10.1); Chloride 111 mmol/L (98-107); Estimated GFR 91.26 (mL/min/1.73m2); Glucose 458 mg/dL (74-106); Sodium 150 mmol/L (136-145); Total Protein 7.3 g/dL (6.4-8.2)
[2023-12-02 10:55] LABS: Absolute Lymphocyte Count 2.02 10^3/uL (1.2-3.4); Absolute Monocyte Count 0.51 10^3/uL (0.1-0.8); Absolute Neutrophil Count 7.38 10^3/uL (1.2-6.7); Bands % 2
[2023-12-02 10:56] LABS: Diff Comment Manual Differential; RBC Morphology Normal
== END 2023-12-02 09:35 | disposition home or self-care (01) ==
LOC: LBN 09:34
PROVIDERS: PCP Family Medicine; Visit Provider Family Medicine
DX: I10 Essential (primary) hypertension (principal); E11.9 Type 2 diabetes mellitus without complications; D64.9 Anemia, unspecified; R68.89 Other general symptoms and signs; G40.219 Localization-related (focal) (partial) symptomatic epilepsy and epileptic syndromes with complex partial seizures, intractable, without status epilepticus
CPT/HCPCS: 80053; 85025